=== PATIENT | male | born 1980 | race Caucasian/White ===

== ENCOUNTER → 2019-06-10 08:06 | Outpatient (REF) | payer BC, SELFPAY | LOC: ANHLAB 08:06 | PROVIDERS: PCP Family Medicine; Visit Provider Nurse Practitioner | DX: C44.319 Basal cell carcinoma of skin of other parts of face (principal) | CPT/HCPCS: 88305; 88331 ==

== ENCOUNTER → 2021-02-15 07:55 | Outpatient (REF) | payer BC, SELFPAY | LOC: ANHLAB 07:55 | PROVIDERS: PCP Family Medicine; Visit Provider Nurse Practitioner | DX: C44.1192 Basal cell carcinoma of skin of left lower eyelid, including canthus (principal) | CPT/HCPCS: 88305; 88331 ==

== ENCOUNTER 2023-01-16 15:10 | Outpatient (NON) | payer BC, SELFPAY | END 2023-01-16 15:11 | disposition home or self-care (01) | LOC: ANHLAB 15:10 | PROVIDERS: PCP Family Medicine; Visit Provider Surgery Plastic and Reconstructive Surgery | DX: C44.311 Basal cell carcinoma of skin of nose (principal) | CPT/HCPCS: 88305; 88331 ==